=== PATIENT | female | born 1990 | race American Indian/Alaskan Native ===

== ENCOUNTER 2021-11-16 19:15 | Emergency (ER) | payer SELFPAY ==
[2021-11-16 19:25] VITALS: BP 143/102
== END 2021-11-16 21:12 | disposition left against medical advice (07) ==
LOC: ED 19:15
DX: K08.89 Other specified disorders of teeth and supporting structures (principal); Z53.21 Procedure and treatment not carried out due to patient leaving prior to being seen by health care provider

== ENCOUNTER 2022-03-28 05:10 | Emergency (ER) | payer MEDICAID ==
[2022-03-28] MEDS ORDERED: ACETAMINOPHEN 325 MG TAB PO ONE (05:57)
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
[2022-03-28 08:34] VITALS: BP 128/76
== END 2022-03-28 08:34 | disposition home or self-care (01) ==
LOC: ED 05:10
DX: S09.93XA Unspecified injury of face, initial encounter (principal); M79.18 Myalgia, other site; V89.2XXA Person injured in unspecified motor-vehicle accident, traffic, initial encounter; Y93.89 Activity, other specified; Y92.89 Other specified places as the place of occurrence of the external cause; Y99.8 Other external cause status
CPT/HCPCS: 99283